=== PATIENT | male | born 1960 | race Caucasian/White ===

== ENCOUNTER 2016-10-26 10:08 | Emergency (ER) | payer MEDICAID ==
[~2016-10-26] VITALS: Ht 167.6 cm; Wt 68.0 kg
[2016-10-26 12:00] VITALS: BP 129/83
[2016-10-26] MEDS ORDERED: CEPHALEXIN MONOHYDRATE 500 MG CAPSULE PO ONE (12:45)
[2016-10-26] MEDS ORDERED: IBUPROFEN 600 MG TABLET PO ONE (12:45)
[2016-10-26] MEDS ORDERED: SULFAMETHOX/TRIMETH DS 800-160 MG/TABLET PO ONE (12:45)
== END 2016-10-26 13:23 | disposition home or self-care (01) ==
LOC: EMS 10:11
DX: S61.431A Puncture wound without foreign body of right hand, initial encounter (principal); F17.210 Nicotine dependence, cigarettes, uncomplicated; W57.XXXA Bitten or stung by nonvenomous insect and other nonvenomous arthropods, initial encounter; Y93.89 Activity, other specified; Y92.9 Unspecified place or not applicable; Y99.9 Unspecified external cause status
CPT/HCPCS: 99284; 99406